=== PATIENT | female | born 1950 | race Caucasian/White ===

== ENCOUNTER → 2016-03-14 | Outpatient (CLI) | payer MEDICARE ==
--- NOTE | 2016-03-14 09:11 | RAD ---
Exam performed: CT chest without contrast. History: Lung nodule. Date of service: 03/14/16. Comparison: None available Technique: Contiguous helical acquisitions are obtained through the chest without IV contrast. Sagittal and coronal reformatted images are obtained and reviewed. Findings: Structures at the thoracic inlet including both lobes of the thyroid gland appear grossly normal. Lack of IV contrast limits evaluation of neck and intrathoracic great vessels, however they appear grossly normal in course and caliber. Scattered atheromatous calcification of the aorta and coronary arteries is seen. There are calcified mediastinal and left hilar lymph nodes, probably related to remote granulomatous infection. The central airway is patent without endoluminal lesions. Interrogation of lungs demonstrates a new small approximately 3 mm nodularities in the posterior right lower lobe. There is a streaky linear opacity in the left lung base. There is dependent atelectasis. No pleural effusion. Postoperative changes are seen in the GE junction. Limited evaluation of the upper abdominal structures is unremarkable. Interrogation of bone windows demonstrates no bony abnormalities. Impression: Several Tiny 2 to 3 mm nodularities in the right lower lobe are noted. Reportedly patient has had a prior chest CT which is not available for comparison and review. If and when the prior CT becomes available, comparison will be done and addendum will be dictated. Correlate with patient's risk factors and follow-up according to Fleischner society recommendation. PQRS Compliance Statement: One or more of the following individualized dose reduction techniques were utilized for this examination: 1. Automated exposure control 2. Adjustment of the mA and/or kV according to patient size 3. Use of iterative reconstruction technique
== END | disposition home or self-care (01) ==
LOC: CT 08:25
PROVIDERS: ATTEND Internal Medicine Pulmonary Disease
DX: R91.1 Solitary pulmonary nodule (principal); J98.11 Atelectasis; I70.0 Atherosclerosis of aorta; I70.90 Unspecified atherosclerosis
CPT/HCPCS: 71250

== ENCOUNTER → 2017-04-03 | Outpatient (CLI) | payer MEDICARE | END | disposition home or self-care (01) | LOC: CT 08:27 | DX: J98.11 Atelectasis (principal); I77.810 Thoracic aortic ectasia; I70.0 Atherosclerosis of aorta; K44.9 Diaphragmatic hernia without obstruction or gangrene; R91.1 Solitary pulmonary nodule; R91.8 Other nonspecific abnormal finding of lung field | CPT/HCPCS: 71250 ==